=== PATIENT | male | born 1950 | race Caucasian/White ===

== ENCOUNTER 2017-01-14 09:23 | Emergency (ER) | payer MEDICARE, OTHER ==
[2017-01-14 09:40] VITALS: BP 165/97
--- NOTE | 2017-01-14 09:57 | EDM.PDOC ---
ED HPI GENERAL MEDICAL PROBLEM - General Chief Complaint: General Stated Complaint: EYE IRRITATION Time Seen by Provider: 01/14/17 09:35 Source of Information: Reports: Patient History Limitations: Reports: No Limitations - History of Present Illness INITIAL COMMENTS - FREE TEXT/NARRATIVE: Patient is a 66 year old man who is outside a lot. He developed a little irritation and watering of his right eye last night. The drainage was clear but had a little yellow mattering today. He has minimal conjunctival redness and irritation. He did not get anything in his eye. Visine has helped some. His vision is unchanged and he dose not wear contacts. Onset Date: 01/13/17 Onset Time: 20:00 Duration: Day(s): (1) Location: Reports: Other (Right eye) Quality: Reports: Other (Minor irritation.) Severity: Mild Improves with: Reports: Other (Visine.) Worsens with: Reports: None Context: Reports: Other (Works outside a lot. 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 ED EXAM, GENERAL - Physical Exam Exam: See Below Exam Limited By: No Limitations General Appearance: Alert, WD/WN, No Apparent Distress Eye Exam: Right Eye: Conjunctival Injection (Very minimal in right lateral conjunctiva.), Bilateral Eye: EOMI, Normal Fundi, Normal Inspection Ears: Normal External Exam, Normal Canal, Hearing Grossly Normal, Normal TMs Ear Exam: Bilateral Ear: Auricle Normal, Canal Normal, TM normal Nose: Normal Inspection, Normal Mucosa, No Blood Throat/Mouth: Normal Inspection, Normal Lips, Normal Teeth, Normal Gums, Normal Oropharynx, Normal Voice, No Airway Compromise Head: Atraumatic, Normocephalic Neck: Normal Inspection, Supple, Non-Tender, Full Range of Motion Respiratory/Chest: No Respiratory Distress, Lungs Clear, Normal Breath Sounds, No Accessory Muscle Use, Chest Non-Tender Cardiovascular: Normal Peripheral Pulses, Regular Rate, Rhythm, No Edema, No Gallop, No JVD, No Murmur, No Rub Neurological: Alert, Oriented, CN II-XII Intact, Normal Cognition, Normal Gait, Normal Reflexes, No Motor/Sensory Deficits Psychiatric: Normal Affect, Normal Mood Skin Exam: Warm, Dry, Intact, Normal Color, No Rash Course - Vital Signs Text/Narrative:: Uneventful ED course. He will get liquid tears, Patanol and Visine and try each to see what relieves best. 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 Last Recorded V/S: Last Vital Signs Temp Pulse 71 01/14/17 09:35 Resp BP 165/97 H 01/14/17 09:35 Pulse Ox 100 01/14/17 09:35 Departure - Departure Time of Disposition: 09:59 Disposition: Home, Self-Care 01 Condition: Good Clinical Impression: Allergic conjunctivitis - Discharge Information Instructions: Allergic Conjunctivitis Referrals: PCP,None [Primary Care Provider] - Forms: ED Department Discharge Additional Instructions: Use OTC eye drops, Liquid tears would work or a saline eye drop Patenol can also be used as directed on the bottle. You can use the drops as needed throughout the day.
== END 2017-01-14 09:50 | disposition home or self-care (01) ==
LOC: LB.ED 09:23
DX: H10.11 Acute atopic conjunctivitis, right eye (principal); Z79.899 Other long term (current) drug therapy
CPT/HCPCS: 99282; 99283

== ENCOUNTER 2020-10-11 21:48 | Emergency (ER) | payer MEDICARE, OTHER ==
[2020-10-11] MEDS: EPINEPHrine 1 MG/ML SDV IM ONE (21:49)
[2020-10-11] MEDS: Sodium Chloride 0.9% 1,000 ML IV SCH (22:05)
[2020-10-11] MEDS: methylPREDNISolone Sodium Succinate 125 MG/2 ML SDV IVPUSH ONE (22:15)
--- NOTE | 2020-10-11 22:30 | EDM.PDOC ---
ED HPI GENERAL MEDICAL PROBLEM - General Chief Complaint: Bite:Animal, Insect Stated Complaint: BEE STINGS Time Seen by Provider: 10/11/20 22:00 Source of Information: Reports: Patient History Limitations: Reports: No Limitations - History of Present Illness INITIAL COMMENTS - FREE TEXT/NARRATIVE: patient presented to the ER after he was stung multiple times by a yellow amador reports swelling of his lips and eyes, as well as , generalized rash and itching. denies SOB or tingling in the throat. Onset: Sudden Duration: Hour(s): (1) Location: Reports: Face, Abdomen - Related Data Allergies Allergy/AdvReac Type Severity Reaction Status Date / Time hydromorphone [From Dilaudid] Allergy Other Verified 10/12/20 05:00 Home Meds: Home Meds Lisinopril/Hydrochlorothiazide [Lisinopril-Hctz 10-12.5 mg Tab] 1 each PO DAILY 01/14/17 [History] EPINEPHrine [Epinephrine] 0.3 mg IM ONETIME #1 unit 10/11/20 [Rx] methylPREDNISolone [Medrol Dose Pack] 84 mg PO DAILY #1 dospk 10/11/20 [Rx] ED ROS GENERAL - Review of Systems Review Of Systems: See Below Constitutional: Reports: No Symptoms HEENT: Reports: No Symptoms Respiratory: Reports: No Symptoms Cardiovascular: Reports: No Symptoms GI/Abdominal: Reports: No Symptoms Musculoskeletal: Reports: No Symptoms Skin: Reports: Pruritis, Rash Neurological: Reports: No Symptoms ED EXAM, ANIMAL BITE - Physical Exam Exam: See Below Exam Limited By: No Limitations General Appearance: Alert, WD/WN, No Apparent Distress Eye Exam: Bilateral Eye: EOMI, PERRL Throat/Mouth: Normal Inspection, Normal Lips, Normal Oropharynx, No Airway Compromise Head: Atraumatic Respiratory/Chest: No Respiratory Distress, Lungs Clear Cardiovascular: Normal Peripheral Pulses, Regular Rate, Rhythm Neurological: Alert, Oriented, No Motor/Sensory Deficits Skin Exam: Rash (generalized rash - swelling of eye lids And lips ) Course - Vital Signs Last Recorded V/S: Last Vital Signs Temp 36.3 C 10/11/20 21:51 Pulse 91 10/11/20 21:51 Resp 20 10/11/20 21:51 BP 129/74 10/11/20 21:51 Pulse Ox 90 L 10/11/20 21:51 - Orders/Labs/Meds Meds: Medications Discontinued Medications Generic Name Dose Route Start Last Admin Trade Name Clementina PRN Reason Stop Dose Admin Diphenhydramine HCl 50 mg 10/11/20 23:11 10/11/20 23:20 Diphenhydramine 50 Mg/Ml Sdv IVPUSH 10/11/20 23:12 50 mg ONETIME ONE Administration Epinephrine HCl 0.3 mg 10/11/20 22:25 10/11/20 21:49 Epinephrine 1 Mg/Ml Sdv IM 10/11/20 22:26 0.3 mg ONETIME ONE Administration Sodium Chloride 1,000 mls @ 999 mls/hr 10/11/20 22:30 10/11/20 23:20 Normal Saline IV Infused ASDIRECTED PERFECTO Infusion Methylprednisolone Sodium Succinate 125 mg 10/11/20 22:25 10/11/20 22:15 Methylprednisolone Sodium Succinate 125 Mg/2 Ml Sdv IVPUSH 10/11/20 22:26 125 mg ONETIME ONE Administration - Re-Assessments/Exams Free Text/Narrative Re-Assessment/Exam: upon arrival to the ER - he was given an epi shot IM 0.3mg followed by IV solumedrol 125mg and IV 0.9 NS bolus Vitals remained WNL, SpO2 92%-95% on RA. was observed for a few hours in the ER remained stable - symptoms improved Departure - Departure Time of Disposition: 23:55 Disposition: Home, Self-Care 01 Condition: Good Clinical Impression: Angioedema Qualifiers: Encounter type: initial encounter Qualified Code(s): T78.3XXA - Angioneurotic edema, initial encounter Insect bite Qualifiers: Encounter type: initial encounter Site of insect bite: head Site of insect bite of head: scalp Qualified Code(s): S00.06XA - Insect bite (nonvenomous) of scalp, initial encounter - Discharge Information *PRESCRIPTION DRUG MONITORING PROGRAM REVIEWED*: Not Applicable *COPY OF PRESCRIPTION DRUG MONITORING REPORT IN PATIENT SHANNAN: Not Applicable Prescriptions: EPINEPHrine [Epinephrine] 0.3 mg IM ONETIME #1 unit methylPREDNISolone [Medrol Dose Pack] 84 mg PO DAILY #1 dospk Instructions: Insect Bite, Adult, [id number] Referrals: PCP,None [Primary Care Provider] - Forms: ED Department Discharge Additional Instructions: - take Benadryl as needed for itching - start taking prednisone tomorrow as prescribed - increase fluids intake - return to the ER if any concerns or worsening of symptoms - Problem List & Annotations (1) Insect bite SNOMED Code(s): 049843591, 323310786 Code(s): W57.XXXA - BIT/STUNG BY NONVENOM INSECT & OTH NONVENOM ARTHROPODS, INIT Status: Acute Priority: Medium Qualifiers: Encounter type: initial encounter Site of insect bite: head Site of insect bite of head: scalp Qualified Code(s): S00.06XA - Insect bite (nonvenomous) of scalp, initial encounter; W57.XXXA - Bitten or stung by nonvenomous insect and other nonvenomous arthropods, initial encounter (2) Angioedema SNOMED Code(s): 29030961 Code(s): T78.3XXA - ANGIONEUROTIC EDEMA, INITIAL ENCOUNTER Status: Acute Priority: Low Qualifiers: Encounter type: initial encounter Qualified Code(s): T78.3XXA - Angioneurotic edema, initial encounter - Problem List Review Problem List Initiated/Reviewed/Updated: Yes - Assessment/Plan Plan: - take Benadryl as needed for itching - start taking prednisone tomorrow as prescribed - increase fluids intake - return to the ER if any concerns or worsening of symptoms
[2020-10-11] MEDS: diphenhydrAMINE 50 MG/ML SDV IVPUSH ONE (23:20)
[2020-10-12 05:02] VITALS: BP 129/74; PULSE 91
== END 2020-10-12 01:10 | disposition home or self-care (01) ==
LOC: LB.ED 21:48
DX: T78.3XXA Angioneurotic edema, initial encounter (principal); S00.06XA Insect bite (nonvenomous) of scalp, initial encounter; Z88.5 Allergy status to narcotic agent; Z79.899 Other long term (current) drug therapy; W57.XXXA Bitten or stung by nonvenomous insect and other nonvenomous arthropods, initial encounter
CPT/HCPCS: 96372; 96374; 96375; 99282; 99283-25; J0171; J1200; J2930; J7030

== ENCOUNTER 2021-01-08 08:11 | Emergency (ER) | payer MEDICARE ==
[2021-01-08 08:41] VITALS: BP 146/88; PULSE 72
--- NOTE | 2021-01-08 08:59 | EDM.PDOC ---
ED HPI GENERAL MEDICAL PROBLEM - General Chief Complaint: Respiratory Problem Stated Complaint: COLD SYMPTOMS Time Seen by Provider: 01/08/21 08:40 - History of Present Illness INITIAL COMMENTS - FREE TEXT/NARRATIVE: Pt comes in with C/O coughing that seems to be getting worse. He is coughing up sputum at times that is clear or white. No SOB, WHEEZING, or fever. No concerns about Covid today. He tells me he gets this same thing once or twice a year, and Steroids usually help him. He quit smoking in 1986. Throat Pain Score (Numeric/FACES): 3 - Related Data Allergies Allergy/AdvReac Type Severity Reaction Status Date / Time hydromorphone [From Dilaudid] Allergy Other Verified 01/08/21 08:20 Home Meds: Home Meds Lisinopril/Hydrochlorothiazide [Lisinopril-Hctz 10-12.5 mg Tab] 1 each PO DAILY 01/14/17 [History] EPINEPHrine [Epinephrine] 0.3 mg IM ONETIME #1 unit 10/11/20 [Rx] Past Medical History Cardiovascular History: Reports: Hypertension Respiratory History: Reports: Bronchitis, Recurrent - Infectious Disease History Infectious Disease History: Reports: Chicken Pox Social & Family History - Tobacco Use Tobacco Use Status *Q: Former Tobacco User Used Tobacco, but Quit: Yes Month/Year Tobacco Last Used: 1986 ED ROS GENERAL - Review of Systems Review Of Systems: Comprehensive ROS is negative, except as noted in HPI. Respiratory: Reports: Cough ED EXAM, GENERAL - Physical Exam Exam: See Below Free Text/Narrative:: V.S are reviewed, they are nml. Ears: Other (He has a small lump in his left ear canal superior portion, close to the TM. Skin color, looks like a small blister. He has already seen ENT and talked about this.) Throat/Mouth: Other (Posterior pharynx shows mild drainage and redness.) Respiratory/Chest: Other (Good A/E. End expiratory Rhonchi in upper lobes.) Course - Vital Signs Last Recorded V/S: Last Vital Signs Temp 97.3 F 01/08/21 08:37 Pulse 72 01/08/21 08:37 Resp 18 01/08/21 08:37 BP 146/88 H 01/08/21 08:37 Pulse Ox 98 01/08/21 08:37 - Re-Assessments/Exams Free Text/Narrative Re-Assessment/Exam: 01/08/21 09:00 I will start a Medrol Dose Jayy - take as directed. Activity as tolerated. Follow up prn. Departure - Departure Time of Disposition: 08:55 Disposition: Home, Self-Care 01 Condition: Good Clinical Impression: Bronchitis - Discharge Information *PRESCRIPTION DRUG MONITORING PROGRAM REVIEWED*: No *COPY OF PRESCRIPTION DRUG MONITORING REPORT IN PATIENT SHANNAN: No Instructions: Acute Bronchitis, Adult Referrals: PCP,None [Primary Care Provider] - Forms: ED Department Discharge Care Plan Goals: Medrol dose pack take as directed. Follow up with your primary care provider as needed. Sepsis Event Note (ED) - Evaluation Sepsis Screening Result: No Definite Risk - Focused Exam Vital Signs: Vital Signs Temp Pulse Resp BP Pulse Ox 01/08/21 08:37 97.3 F 72 18 146/88 H 98
== END 2021-01-08 08:55 | disposition home or self-care (01) ==
LOC: LB.ED 08:11
DX: J40 Bronchitis, not specified as acute or chronic (principal); H93.8X2 Other specified disorders of left ear; I10 Essential (primary) hypertension; Z87.891 Personal history of nicotine dependence; Z88.5 Allergy status to narcotic agent; Z79.899 Other long term (current) drug therapy
CPT/HCPCS: 99283